=== PATIENT | female | born 1990 | race Hispanic/Latino ===

== ENCOUNTER 2016-06-17 20:27 | Emergency (ER) | payer SELFPAY ==
[~2016-06-17] VITALS: Ht 160 cm; Wt 148.9 kg
[~2016-06-17 20:27] MED LIST: ATIVAN1 MG PO; BENTYL20 MG PO; LIFE-PACK0.8 MG PO; ZOFRAN4 MG PO
[2016-06-17 23:10] VITALS: BP 121/74
== END 2016-06-17 23:11 | disposition home or self-care (01) ==
LOC: RME 20:27 → EME 20:27 → RME 23:11
DX: R21 Rash and other nonspecific skin eruption (principal); R51 Headache; Z77.098 Contact with and (suspected) exposure to other hazardous, chiefly nonmedicinal, chemicals
CPT/HCPCS: 99281; 99284

== ENCOUNTER 2016-07-26 07:26 | Emergency (ER) | payer SELFPAY ==
[~2016-07-26] VITALS: Ht 160 cm; Wt 150.2 kg
[2016-07-26 08:04] LABS: HEMATOCRIT 39.7 % (36.0-46.0); MCH 26.4 PG (29.0-34.0); MCHC 32.2 G/DL (30.0-36.0); MEAN PLAT.VOLUME 9.8 uM^3 (9.5-12.4); PLATELET COUNT 333 K/uL (156-360); RBC DIS.WIDTH-CV 13.3 % (11.8-14.6); RBC DIS.WIDTH-SD 39.7 % (39-53); RED BLOOD COUNT 4.84 M/uL (3.80-5.20); WHITE BLOOD COUNT 6.7 K/uL (4.1-10.2)
[2016-07-26 08:17] LABS: CHLORIDE 106 mEq/L (99-109); POTASSIUM 4.7 mEq/L (3.7-5.4); SODIUM 136 mEq/L (136-147)
[2016-07-26 08:20] LABS: GLUCOSE 105 mg/dL (70-99)
[2016-07-26 08:21] LABS: ANION GAP 12 MEQ/L (2-14)
[2016-07-26 08:22] LABS: TOTAL BILIRUBIN 0.4 mg/dL (0.0-1.0)
[2016-07-26 08:23] LABS: ALKALINE PHOSPHATASE 103 IU/L (3-129); GFR ESTIMATE (CALCULATED) > 59 mL/min/
[2016-07-26 08:24] LABS: UREA NITROGEN (BUN) 14 mg/dL (9-23)
[2016-07-26 08:27] LABS: LIPASE 13 U/L (1.0-51.0)
[2016-07-26 08:36] LABS: QUANTITATIVE HCG < 4.0 MIU/ML
[2016-07-26 08:51] LABS: ADD MIUA? YES; BILIRUBIN NEGATIVE; BLOOD LARGE; COLOR YELLOW ((YELLOW)); GLUCOSE (STRIP) NEGATIVE; KETONES NEGATIVE; LEUKOCYTES NEGATIVE; NITRITE NEGATIVE; PROTEIN (STRIP) 100; SPECIFIC GRAVITY 1.028 (1.000-1.030); UROBILINOGEN 0.2 MG/DL (0.2-1.0)
[2016-07-26 09:07] LABS: BACTERIA RARE /HPF; EPITHELIAL CELLS RARE /HPF; HYALINE CASTS 0-5 /LPF; MUCUS TRACE /LPF; RED BLOOD CELLS 20-30 /HPF (0-5); UCUL ADDED? NO; WHITE BLOOD CELLS 0-5 /HPF (0-5)
[2016-07-26] MEDS ORDERED: ZOFRAN4 MG PO (11:45)
[2016-07-26 11:59] VITALS: BP 107/76
== END 2016-07-26 12:16 | disposition home or self-care (01) ==
LOC: EME 07:26
PROVIDERS: Emergency Medicine
DX: R11.2 Nausea with vomiting, unspecified (principal); R19.7 Diarrhea, unspecified
CPT/HCPCS: 74177; 80053; 81003; 83690; 84702; 85027; 99281; 99285; J2405; J7030

== ENCOUNTER 2016-08-01 09:09 | Emergency (ER) | payer SELFPAY ==
[~2016-08-01] VITALS: Ht 165.1 cm; Wt 149.5 kg
[2016-08-01 10:44] LABS: HEMATOCRIT 38.4 % (36.0-46.0); MCH 26.3 PG (29.0-34.0); MCV 82.1 FL (83-99); MEAN PLAT.VOLUME 10.1 uM^3 (9.5-12.4); PLATELET COUNT 325 K/uL (156-360); RBC DIS.WIDTH-CV 13.1 % (11.8-14.6); RBC DIS.WIDTH-SD 39.2 % (39-53); RED BLOOD COUNT 4.68 M/uL (3.80-5.20); WHITE BLOOD COUNT 5.3 K/uL (4.1-10.2)
[2016-08-01 10:52] LABS: CHLORIDE 106 mEq/L (99-109); POTASSIUM 4.5 mEq/L (3.7-5.4); SODIUM 136 mEq/L (136-147)
[2016-08-01 10:54] LABS: GLUCOSE 96 mg/dL (70-99)
[2016-08-01 10:55] LABS: ANION GAP 8 MEQ/L (2-14)
[2016-08-01 10:57] LABS: ALKALINE PHOSPHATASE 114 IU/L (3-129); GFR ESTIMATE (CALCULATED) > 59 mL/min/
[2016-08-01 10:58] LABS: TOTAL BILIRUBIN 0.3 mg/dL (0.0-1.0)
[2016-08-01 10:59] LABS: UREA NITROGEN (BUN) 12 mg/dL (9-23)
[2016-08-01 11:08] LABS: QUANTITATIVE HCG < 4.0 MIU/ML
[2016-08-01 12:50] LABS: ADD MIUA? YES; BILIRUBIN NEGATIVE; BLOOD LARGE; COLOR LT.RED ((YELLOW)); GLUCOSE (STRIP) NEGATIVE; KETONES NEGATIVE; LEUKOCYTES TRACE; NITRITE NEGATIVE; PROTEIN (STRIP) 30; UROBILINOGEN 0.2 MG/DL (0.2-1.0)
[2016-08-01 13:09] LABS: RED BLOOD CELLS TNTC /HPF (0-5)
[2016-08-01 13:12] LABS: BACTERIA 1+ /HPF; EPITHELIAL CELLS 1+ /HPF; MUCUS NONE SEEN /LPF; UCUL ADDED? NO
[2016-08-01 14:26] VITALS: BP 110/65
== END 2016-08-01 14:27 | disposition home or self-care (01) ==
LOC: EME 09:09
DX: N93.9 Abnormal uterine and vaginal bleeding, unspecified (principal); R11.2 Nausea with vomiting, unspecified; J45.909 Unspecified asthma, uncomplicated
CPT/HCPCS: 76856; 80053; 81003; 84702; 85027; 87086; 99281; 99284; J2405; J7030

== ENCOUNTER → 2016-09-20 | Outpatient (CLI) | payer OTHER | END | disposition home or self-care (01) | LOC: RAD 09:50 | DX: N83.01 Follicular cyst of right ovary (principal) | CPT/HCPCS: 76856 ==

== ENCOUNTER → 2016-10-27 | Outpatient (CLI) | payer OTHER | END | disposition home or self-care (01) | LOC: RAD 13:30 | PROC: BU18YZZ Fluoroscopy of Uterus and Fallopian Tubes using Other Contrast (ICD-10-PCS; principal; 2016-10-27) | PROC: 0UJD7ZZ Inspection of Uterus and Cervix, Via Natural or Artificial Opening (ICD-10-PCS; principal; 2016-10-27) | PROC: 0UJ87ZZ Inspection of Fallopian Tube, Via Natural or Artificial Opening (ICD-10-PCS; principal; 2016-10-27) | DX: N97.9 Female infertility, unspecified (principal) | CPT/HCPCS: 74740 ==

== ENCOUNTER 2016-11-26 13:56 | Emergency (ER) | payer OTHER ==
[~2016-11-26] VITALS: Ht 162.6 cm; Wt 143.1 kg
[2016-11-26 14:12] VITALS: BP 109/81
[2016-11-26] MEDS ORDERED: OFLOXACIN10 ML LEFT EAR (15:10)
[2016-11-26] MEDS ORDERED: FLONASE16 G1 BOTH NARES (15:10)
== END 2016-11-26 15:22 | disposition home or self-care (01) ==
LOC: EXP 13:56 → EME 13:56 → EXP 15:22
DX: H60.92 Unspecified otitis externa, left ear (principal); H69.80 Other specified disorders of Eustachian tube, unspecified ear; R51 Headache
CPT/HCPCS: 99281; 99284

== ENCOUNTER 2017-06-24 22:53 | Emergency (ER) | payer OTHER ==
[~2017-06-24] VITALS: Ht 160 cm; Wt 149.1 kg
[~2017-06-24 22:53] MED LIST changes: +FLONASE16 G1 BOTH NARES; +OFLOXACIN10 ML LEFT EAR
[2017-06-24 22:55] VITALS: BP 132/85
[2017-06-24 23:41] LABS: HEMATOCRIT 36.4 % (36.0-46.0); HEMOGLOBIN 11.9 G/DL (11.9-15.5); MCH 26.7 PG (29.0-34.0); MCHC 32.7 G/DL (30.0-36.0); MCV 81.6 FL (83-99); PLATELET COUNT 312 K/uL (156-360); RBC DIS.WIDTH-CV 14.1 % (11.8-14.6); RBC DIS.WIDTH-SD 41.4 % (39-53); RED BLOOD COUNT 4.46 M/uL (3.80-5.20)
[2017-06-24 23:47] LABS: APPEARANCE SL.HAZY ((CLEAR)); BILIRUBIN NEGATIVE; BLOOD NEGATIVE; COLOR YELLOW ((YELLOW)); GLUCOSE (STRIP) NEGATIVE; KETONES NEGATIVE; LEUKOCYTES NEGATIVE; NITRITE NEGATIVE; PROTEIN (STRIP) NEGATIVE; SPECIFIC GRAVITY 1.029 (1.000-1.030)
[2017-06-25 00:04] LABS: QUANTITATIVE HCG < 4.0 MIU/ML
[2017-06-25 00:28] LABS: ALBUMIN 4.3 g/dL (3.2-4.8); CHLORIDE 106 mEq/L (99-109); POTASSIUM 4.5 mEq/L (3.7-5.4); SODIUM 139 mEq/L (136-147)
[2017-06-25 00:30] LABS: GLUCOSE 106 mg/dL (70-99); TOTAL PROTEIN 7.6 g/dL (6.4-8.3)
[2017-06-25 00:32] LABS: TOTAL BILIRUBIN 0.2 mg/dL (0.0-1.0)
[2017-06-25 00:34] LABS: ALKALINE PHOSPHATASE 102 IU/L (3-129); CREATININE 0.8 mg/dL (0.6-1.3); GFR ESTIMATE (CALCULATED) > 59 mL/min/
[2017-06-25 00:35] LABS: UREA NITROGEN (BUN) 17 mg/dL (9-23)
[2017-06-25 00:36] LABS: AST (GOT) 27 IU/L (2-34)
[2017-06-25 00:37] LABS: ALT (GPT) 39 IU/L (3-49)
[2017-06-25] MEDS ORDERED: MOTRIN600 MG PO (00:39)
[2017-06-25 01:08] LABS: SOURCE SWAB
[2017-06-25 02:07] LABS: BACTERIA RARE /HPF; EPITHELIAL CELLS RARE /HPF; MUCUS TRACE /LPF; RED BLOOD CELLS 0-5 /HPF (0-5); UCUL ADDED? NO; WHITE BLOOD CELLS 0-5 /HPF (0-5)
== END 2017-06-25 01:17 | disposition home or self-care (01) ==
LOC: EME 22:53
PROVIDERS: Physician Assistant
DX: R10.2 Pelvic and perineal pain (principal); J45.909 Unspecified asthma, uncomplicated
CPT/HCPCS: 76856; 80053; 81003; 84702; 85027; 87210; 87491; 87591; 99281; 99285

== ENCOUNTER 2017-07-07 02:48 | Emergency (ER) | payer SELFPAY ==
[~2017-07-07] VITALS: Ht 162.6 cm; Wt 148.8 kg
[~2017-07-07 02:48] MED LIST changes: +MOTRIN600 MG PO
[2017-07-07 03:19] LABS: HEMATOCRIT 35.9 % (36.0-46.0); HEMOGLOBIN 11.8 G/DL (11.9-15.5); MCH 26.5 PG (29.0-34.0); MCHC 32.9 G/DL (30.0-36.0); MCV 80.7 FL (83-99); PLATELET COUNT 290 K/uL (156-360); RBC DIS.WIDTH-SD 41.2 % (39-53); RED BLOOD COUNT 4.45 M/uL (3.80-5.20); WHITE BLOOD COUNT 10.1 K/uL (4.1-10.2)
[2017-07-07 03:30] LABS: ALBUMIN 4.3 g/dL (3.2-4.8); CHLORIDE 107 mEq/L (99-109); POTASSIUM 4.3 mEq/L (3.7-5.4); SODIUM 136 mEq/L (136-147)
[2017-07-07 03:32] LABS: GLUCOSE 100 mg/dL (70-99)
[2017-07-07 03:33] LABS: TOTAL PROTEIN 8.2 g/dL (6.4-8.3)
[2017-07-07 03:34] LABS: TOTAL BILIRUBIN 0.3 mg/dL (0.0-1.0)
[2017-07-07 03:36] LABS: ALKALINE PHOSPHATASE 105 IU/L (3-129); CREATININE 0.8 mg/dL (0.6-1.3); GFR ESTIMATE (CALCULATED) > 59 mL/min/
[2017-07-07 03:37] LABS: UREA NITROGEN (BUN) 12 mg/dL (9-23)
[2017-07-07 03:38] LABS: AST (GOT) 20 IU/L (2-34)
[2017-07-07 03:39] LABS: ALT (GPT) 31 IU/L (3-49); LIPASE 13 U/L (1.0-51.0)
[2017-07-07] MEDS ORDERED: ZOFRAN8 MG PO (05:17)
[2017-07-07] MEDS ORDERED: ZITHROMAX500 MG PO (05:17)
[2017-07-07] MEDS ORDERED: NORCO 5/3251 TABLET PO (05:17)
[2017-07-07 07:14] VITALS: BP 116/78
== END 2017-07-07 07:14 | disposition home or self-care (01) ==
LOC: EME 02:48
PROVIDERS: Emergency Medicine
DX: J02.0 Streptococcal pharyngitis (principal); J01.90 Acute sinusitis, unspecified; R11.2 Nausea with vomiting, unspecified; J45.909 Unspecified asthma, uncomplicated; Z87.891 Personal history of nicotine dependence; Z86.19 Personal history of other infectious and parasitic diseases
CPT/HCPCS: 70486; 80053; 81003; 82945; 83605; 83690; 84157; 85027; 87040; 87070; 87205; 87502; 87529 90; 87651 90; 89051; 99281; 99285; J2270; J2765; J7030